=== PATIENT | female | born 1975 | race Caucasian/White ===

== ENCOUNTER 2016-05-03 22:00 | Emergency (ER) | payer BC ==
--- NOTE | 2016-05-03 22:31 | ED ---
General Adult HPI <Parish Faria - Last Filed: 05/03/16 22:43> - General Source: patient, RN notes reviewed Mode of arrival: ambulatory Limitations: no limitations <Jackie Melendez - Last Filed: 05/04/16 00:38> - General Chief complaint: Abdominal Pain Stated complaint: 9 wks /Bleeding Time Seen by Provider: 05/03/16 22:18 - History of Present Illness Initial comments: This is a 40-year-old female who presents with vaginal bleeding and is currently 9 weeks . Patient is via IVF and is followed at [facility]. Patient states the blood was initially a brownish red but is now a brighter red. Patient has had multiple ultrasounds and beta hCGs checked. Patient states the bleeding started around 3 PM today and has been quite heavy. Patient denies any abdominal pain or cramping. Patient denies any recent fever , chills, shortness breath, chest pain, nausea/vomiting/diarrhea, back pain, numbness, tingling, hematuria, headache, or visual changes, or any other complaints. (Jackie Melendez) - Related Data Previous Rx's Medication Instructions Recorded Ciprofloxacin HCl [Cipro] 500 mg PO Q12HR #10 tablet 08/22/13 Allergies Allergy/AdvReac Type Severity Reaction Status Date / Time No Known Allergies Allergy Verified 05/03/16 22:06 Review of Systems ROS Other: All systems not noted in ROS Statement are negative. <Parish Faria - Last Filed: 05/03/16 22:43> ROS Other: All systems not noted in ROS Statement are negative. <Jackie Melendez - Last Filed: 05/04/16 00:38> ROS Statement: Those systems with pertinent positive or pertinent negative responses have been documented in the HPI. Past Medical History Past Medical History: No Reported History History of Any Multi-Drug Resistant Organisms: None Reported Past Surgical History: Breast Surgery, Orthopedic Surgery Additional Past Surgical History / Comment(s): COLONOSCOPY, LUMPECTOMY LEFT BREAST Past Psychological History: ADD/ADHD Smoking Status: Never smoker Past Alcohol Use History: Occasional Past Drug Use History: None Reported <Jackie Melendez - Last Filed: 05/04/16 00:38> General Exam <Parish Faria - Last Filed: 05/03/16 22:43> Limitations: no limitations External exam: Present: normal external exam. Absent: erythema, swelling, lesions, lacerations Speculum exam: Present: normal speculum exam (Cervical os is closed. No products of conception visualized.), vaginal bleeding. Absent: erythema, laceration By manual exam: Present: normal by manual exam. Absent: cervical motion tenderness, adnexal tenderness <Jackie Melendez - Last Filed: 05/04/16 00:38> - General Exam Comments Initial Comments: General: The patient is awake and alert, in no distress, and does not appear acutely ill. Eye: Pupils are equal, round and reactive to light, extra-ocular movements are intact. No nystagmus. There is normal conjunctiva bilaterally. No signs of icterus. Ears: TMs pink and pearly with intact cone of light bilaterally. Normal external ear canals Nose: Nasal turbinates pink and moist Mouth and throat: There are moist mucous membranes and no oral lesions. Neck: The neck is supple, there is no tenderness or JVD. Cardiovascular: There is a regular rate and rhythm. No murmur, rub or gallop is appreciated. Respiratory: Lungs are clear to auscultation, respirations are non-labored, breath sounds are equal. No wheezes, stridor, rales, or rhonchi. Gastrointestinal: Soft, non-distended, non-tender abdomen without masses or organomegaly noted. There is no rebound or guarding present. No CVA tenderness. Bowel sounds are unremarkable. Musculoskeletal: Normal ROM, no tenderness. Strength 5/5. Sensation intact. Radial pulses equal bilaterally 2+. Neurological: A&O x 3. CN II-XII intact, There are no obvious motor or sensory deficits. Coordination appears grossly intact. Speech is normal. Skin: Skin is warm and dry and no rashes or lesions are noted. Psychiatric: Cooperative, appropriate mood & affect, normal judgment. (Jackie Melendez) Medical Decision Making - Lab Data Result diagrams: 05/03/16 22:10 <Parish Faria - Last Filed: 05/03/16 22:43> - Lab Data Result diagrams: 05/03/16 22:10 <Jackie Melendez - Last Filed: 05/04/16 00:38> - Medical Decision Making I spoke with the patient and she states that her is due to IVF, she is 9 weeks along. She's had ultrasounds which have shown IUP his without any problems. Today she had bleeding that initially looked dark brownish in color and then fresher. Minimal to no cramping. Patient does not know her blood type severity tested. Patient lives CBC ultrasound and Rh determination. Vaginal examination to be done after the ultrasound. Patient will follow-up with Dr. stanley. Dr. Faria (Bienvenido,Parish) This is a 40yo female who presents with vaginal bleeding and she is 9 weeks via IVF. On physical exam the patient has a nontender abdomen with no guarding and no rigidity. There is no adnexal tenderness or cervical motion tenderness with pelvic exam. On speculum exam cervical os is closed. There is blood in the vaginal vault but there is no current active or heavy bleeding. No products of conception noted. Patient declined GC chlamydia, Trichomonas screening at this time. Basic labs were drawn and reviewed. Transvaginal ultrasound was done and reviewed showing: Evidence of single live intrauterine 9 weeks and 1 day gestational age with heart rate of 176 bpm. MARY by current ultrasound is 12/05/2016. #2 small subchorionic bleed is noted surrounding the intrauterine congestions back measuring 3.2 x 1.3 x 2.4 cm. Report read by Dr. Ovalle. Discussed results with patient and family. I spoke with Dr. Pope regarding Rh- blood type. Patient received RhoGAM in the EC today. I discussed return parameters and pelvic rest. I discussed that patient should follow-up with Dr. Pope as soon as possible. Discussed that patient should follow up with PCP in one to 2 days or return to the EC for any worsening symptoms or for any further concerns. Patient was receptive to this plan and patient will be discharged home. I discussed this case with attending physicians Dr. Faria and Dr. Martinez who agrees with the plan as stated above. (Jackie Melendez) - Lab Data Lab Results 05/03/16 05/03/16 05/03/16 Range/Units 22:10 22:10 22:10 WBC 7.6 (3.8-10.6) k/uL RBC 4.46 (3.80-5.40) m/uL Hgb 14.1 (11.4-16.0) gm/dL Hct 41.5 (34.0-46.0) % MCV 93.1 (80.0-100.0) fL MCH 31.7 (25.0-35.0) pg MCHC 34.1 (31.0-37.0) g/dL RDW 12.5 (11.5-15.5) % Plt Count 253 (150-450) k/uL Neutrophils % 62 % Lymphocytes % 26 % Monocytes % 7 % Eosinophils % 2 % Basophils % 1 % Neutrophils # 4.7 (1.3-7.7) k/uL Lymphocytes # 2.0 (1.0-4.8) k/uL Monocytes # 0.5 (0-1.0) k/uL Eosinophils # 0.1 (0-0.7) k/uL Basophils # 0.0 (0-0.2) k/uL HCG, Quant >147140.0 mIU/mL Blood Type A Negative Blood Type Recheck No Antibody Screen NEGATIVE Disposition <Parish Faria - Last Filed: 05/03/16 22:43> Time of Disposition: 00:11 <Jackie Melendez - Last Filed: 05/04/16 00:38> Clinical Impression: Vaginal bleeding before 22 weeks gestation, Intrauterine , Subchorionic bleed Disposition: HOME SELF-CARE Condition: Good Instructions: Rho (By injection) Additional Instructions: Please follow-up with Dr. Pope in the next 1-2 days. Pelvic rest is advised. Please return to emergency room if the symptoms increase or worsen or for any other concerns. Referrals: Rochelle Pope MD [Primary Care Provider] - 1-2 days
[2016-05-03 22:37] LABS: Basophils % (A) 1 %; CH 32.6; CHCM 35.1; Eosinophils # (A) 0.1 k/uL (0-0.7); Eosinophils % (A) 2 %; HCT 41.5 % (34.0-46.0); HDW 2.45; HGB 14.1 gm/dL (11.4-16.0); Luc # (Auto) 0.19; Luc % (Auto) 3; Lymphocytes % (A) 26 %; MCH 31.7 pg (25.0-35.0); MCHC 34.1 g/dL (31.0-37.0); MCV 93.1 fL (80.0-100.0); Mean Platelet Volume 6.7; Monocytes # (A) 0.5 k/uL (0-1.0); Monocytes % (A) 7 %; Neutrophils # (A) 4.7 k/uL (1.3-7.7); Neutrophils % (A) 62 %; RBC 4.46 m/uL (3.80-5.40); RDW 12.5 % (11.5-15.5); WBC 7.6 k/uL (3.8-10.6); WBC (Perox) 7.58
--- NOTE | 2016-05-03 23:29 | US ---
EXAMINATION TYPE: US OB <= 14 wk fetus DATE OF EXAM: 05/03/2016 11:01 PM COMPARISON: 06/19/2015 CLINICAL HISTORY: pain. Bleeding x 1 day, 1 EXAM PERFORMED: Transabdominal (TA) EXAM MEASUREMENTS: GESTATIONAL AGE / DATING Physician Established: Not established yet Dates by LMP: (9 weeks/1 days) EDC: 12/05/2016 Dates by First Scan: No previous Dates by Current Scan for: (9 weeks/1 days) EDC: 12/05/2016 MATERNAL ANATOMY Uterus: 10.3 x 7.1 x 7.8cm Right Ovary: 2.7 x 2.0 x 1.8cm Left Ovary: 2.8 x 1.6 x 1.8cm Post CDS / Adnexa: wnl Presence of free fluid: no Presence of corpus luteal cyst: not seen at this time Presence of subchorionic bleed: 3.2 x 1.3 x 2.4cm complex area adjacent to gestational sac GESTATION / SURVEY CRL: 2.4cm (9 weeks/1 days) Yolk Sac (normal less than 6mm): 3.6mm Heart Rate: 176 bpm Rhythm: Normal IUP: Viable IUP Date of LMP: 02/29/16 Beta HcG (if available): Not available at time of exam TECHNOLOGIST IMPRESSION: Viable single IUP measuring 9 weeks 1 day with a heart rate of 176bpm and a n estimated delivery date of 12/05/2016, 3.2 x 1.3 x 2.4cm complex area adjacent to gestational sac - possible subchorionic bleed IMPRESSION: 1. Evidence of single live intrauterine of 9 weeks and 1 day gestational age with hea rt rate of 176 bpm. MARY by current ultrasound is 12/05/2016. 2. Small subchorionic bleed is noted surrounding the intrauterine congestion sac measuring 3.2 x 1.3 x 2.4 cm.
[2016-05-03] MEDS ORDERED: Rhogam IMMUNE GLOBULIN 1,500 UNIT/1 ML IM ONE (23:43)
[2016-05-04 00:33] VITALS: RESP 16
[2016-05-04 01:05] VITALS: BP 110/65; PULSE 53; TEMP 99
== END 2016-05-04 01:03 | disposition home or self-care (01) ==
LOC: EC 22:00
DX: O20.9 Hemorrhage in early pregnancy, unspecified (principal); Z3A.09 9 weeks gestation of pregnancy; O26.893 Other specified pregnancy related conditions, third trimester; Z67.11 Type A blood, Rh negative
CPT/HCPCS: 96372; 36415; 86900; 86901; 85025; 86850; 84702; 76801; 99284; J2791

== ENCOUNTER 2016-09-18 15:01 | Outpatient (CLI) | payer BC ==
[2016-09-18 16:13] VITALS: BP 111/61; PULSE 51; RESP 16; TEMP 98
== END 2016-09-18 15:50 | disposition home or self-care (01) ==
LOC: FBPOP 15:01
PROVIDERS: ATTEND Obstetrics & Gynecology
DX: O26.93 Pregnancy related conditions, unspecified, third trimester (principal); Z3A.29 29 weeks gestation of pregnancy
CPT/HCPCS: 59025; 99213

== ENCOUNTER 2016-11-30 00:25 | Inpatient (IN) | payer BC ==
[2016-11-30] MEDS ORDERED: OXYTOCIN 10 UNIT/ML 1 ML VIAL IM PRN (00:58)
[2016-11-30] MEDS ORDERED: LIDOCAINE 1% (PF) 10 MG/ML (30 ML SDV) SQ PRN (00:58)
[2016-11-30] MEDS ORDERED: METHYLERGONOVINE 0.2 MG/ML 1 ML AMP IM PRN (00:58)
[2016-11-30] MEDS ORDERED: CARBOPROST TROMETHAMINE 250 MCG/ML 1 ML AMP IM PRN (00:58)
[2016-11-30] MEDS ORDERED: TERBUTALINE 1 MG/ML VIAL SQ PRN (00:58)
[2016-11-30 01:35] VITALS: BMI 23.7
[2016-11-30] MEDS: OXYTOCIN 20 UNITS/1000 ML NS 1,000 ML IV SCH (06:50)
[2016-11-30] MEDS: LACTATED RINGERS 1,000 ML IV SCH ×3 (06:53→19:22)
[2016-11-30] MEDS ORDERED: BUTORPHANOL 1 MG/ML 1 ML VIAL IV PRN (07:17)
--- NOTE | 2016-11-30 08:29 | P.HPOB ---
History of Present Illness H&P Date: 11/30/16 Chief Complaint: IUP at 39-4/7 weeks, spontaneous rupture of membranes This is a very pleasant 41-year-old 1 para 0 at 39-4/7 weeks. Estimated due date of 12/03/2016. She presented to labor and delivery early this morning with complaints of rupture of membranes at 2330. Was noted to be clear in nature. She noted some mild contractions at the time of admission. She also noted good movement and denied vaginal bleeding. blood work showed a blood type of A-, she was rubella immune, hepatitis B surface antigen negative, group beta strep negative, HIV negative. Her has been complicated by a circumvallate placenta and she has been receiving testing in the office with Dr. Henderson Past Medical History Past Medical History: No Reported History History of Any Multi-Drug Resistant Organisms: None Reported Past Surgical History: Breast Surgery, Orthopedic Surgery Additional Past Surgical History / Comment(s): COLONOSCOPY, LUMPECTOMY LEFT BREAST Past Anesthesia/Blood Transfusion Reactions: No Reported Reaction Past Psychological History: ADD/ADHD Smoking Status: Never smoker Past Alcohol Use History: Occasional Past Drug Use History: None Reported - Past Family History Father Family Medical History: Hypertension Medications and Allergies Home Medications Medication Instructions Recorded Confirmed Type Levothyroxine Sodium [Synthroid] 50 mcg PO DAILY 11/30/16 11/30/16 History Pnv,Calcium 72/Iron/Folic Acid 1 tab PO DAILY 11/30/16 11/30/16 History [ Plus Tablet] Allergies Allergy/AdvReac Type Severity Reaction Status Date / Time No Known Allergies Allergy Verified 11/30/16 00:40 Exam Osteopathic Statement: *. No significant issues noted on an osteopathic structural exam other than those noted in the History and Physical/Consult. - Vital Signs Vital signs: Vital Signs Temp Pulse Resp BP Pulse Ox 11/30/16 00:39 97.3 F L 55 L 18 115/68 100 Intake and Output 11/29/16 11/30/16 11/30/16 22:59 06:59 14:59 Intake Total 1000 Balance 1000 Intake: IV 1000 Lactated Ringers 1,000 ml 1000 @ 125 mls/hr IV .Q8H COURTNEY Rx#:[id number] Other: # Voids 1 Weight 61.689 kg - OBG Physical Exam Cervix: /2 per RN on admission Assessment and Plan (1) Term Narrative/Plan: Rina is admitted to labor and delivery for expectant management. Will anticipate spontaneous vaginal delivery. Pitocin augmentation if necessary in the morning. Status: Acute (2) SROM (spontaneous rupture of membranes) Status: Acute (3) AMA (advanced maternal age) primigravida 35+ Status: Acute
[2016-11-30] MEDS ORDERED: BUPIVACAINE (PF) 0.25% 30 ML VIAL ONE (08:34)
[2016-11-30] MEDS ORDERED: SODIUM CHLORIDE 0.9% 100 ML BAG ONE (08:34)
[2016-11-30] MEDS ORDERED: fentaNYL (PF) 50 MCG/ML 5 ML AMP ONE (08:34)
[2016-11-30] MEDS ORDERED: Acetaminophen-Codeine 300-30mg TAB PO PRN ×2 (13:45)
[2016-11-30] MEDS ORDERED: HYDROCORTISONE 2.5% RECTAL CREAM 30 GM TUBE RECTAL PRN (13:45)
[2016-11-30] MEDS ORDERED: diphenhydrAMINE 50 MG/ML 1 ML VIAL IVP PRN ×2 (13:45)
[2016-11-30] MEDS ORDERED: diphenhydrAMINE 25 MG CAP PO PRN (13:45)
[2016-11-30] MEDS ORDERED: OXYTOCIN 20 UNITS/1000 ML NS 1,000 ML IV SCH (13:45)
[2016-11-30] MEDS ORDERED: SIMETHICONE 80 MG CHEWABLE PO PRN (13:45)
[2016-11-30] MEDS ORDERED: diphenhydrAMINE 50 MG CAP PO PRN (13:45)
[2016-11-30] MEDS ORDERED: ZOLPIDEM 5 MG TAB PO PRN (13:45)
[2016-11-30] MEDS ORDERED: ACETAMINOPHEN TAB 325 MG TAB PO PRN (13:45)
[2016-11-30] MEDS ORDERED: WITCH HAZEL 1 EACH MED..PAD TOPICAL PRN (13:45)
[2016-11-30] MEDS ORDERED: LANOLIN CREAM 5 GM TUBE TOPICAL PRN (13:45)
[2016-11-30] MEDS ORDERED: BENZOCAINE/MENTHOL SPRAY 1 GM/SPRAY AEROSOL TOPICAL PRN (13:45)
--- NOTE | 2016-11-30 13:45 | P.PROBDLV ---
Vaginal Delivery Note - . Vaginal Delivery Note: Baby is a very pleasant 41-year-old 1 para 0 at 39-4/7 weeks that presented to OB with complaints of rupture of membranes at 2330. He noted the fluid to be clear in nature with cramping, mild contractions. Patient was admitted to labor and delivery for expectant management given she was GBS negative. Pitocin was started early this morning to induce labor, by just after 8 AM she was 3 cm at this time uncomfortable and requesting an epidural. Her O was placed without difficulty and patient promptly took a nap after a proximally 2 hours patient had a vaginal exam revealing she was completely dilated at +2 station. She began pushing for approximately 1 hour with good progress. She had a normal spontaneous vaginal delivery over an intact perineum no nuchal cord noted. Male infant delivered at 1251 meconium-stained fluid was noted behind the body of the baby. The baby was noted to be pale the cord was doubly clamped and cut and handed off to pediatric rn. Apgars were 4, 6 at 1 and 5 minutes respectively. The baby's heart rate after delivery was noted to be in the 160s to 180s the baby was bagged in the [place]so[place] please see infant form for official time. Sponge was then delivered, she was noted to have a circumvallate placenta. The umbilical cord was loosely attached placenta and manual extraction was needed to clear the uterus of the placenta. Center was removed intact and the uterus was felt to be clear of all clots and placental debris. On vaginal assessment a periurethral laceration was noted which was repaired with 4-0 chromic. In addition a first-degree vaginal laceration was noted which was repaired in a running locked fashion with 3-0 Rapide. Rectal exam was done at the end of the repair work no rectal defects were noted. Estimated blood loss was approximately 300 mL, her bladder was emptied for approximately 100 mL of clear yellow urine prior to pushing. Mom tolerated delivery well, to special care nursery for further evaluation, All counts were correct 2
[2016-11-30 14:27] LABS: Basophils % (A) 0 %; CHCM 35.2; Eosinophils # (A) 0.1 k/uL (0-0.7); Eosinophils % (A) 0 %; HCT 38.5 % (34.0-46.0); HDW 3.23; HGB 13.6 gm/dL (11.4-16.0); Luc # (Auto) 0.17; Luc % (Auto) 1; Lymphocytes # (A) 0.6 k/uL (1.0-4.8); Lymphocytes % (A) 3 %; MCH 34.4 pg (25.0-35.0); MCHC 35.4 g/dL (31.0-37.0); MCV 97.4 fL (80.0-100.0); Mean Platelet Volume 7.9; Monocytes # (A) 0.9 k/uL (0-1.0); Monocytes % (A) 5 %; Neutrophils # (A) 16.5 k/uL (1.3-7.7); Neutrophils % (A) 91 %; RBC 3.95 m/uL (3.80-5.40); RDW 13.9 % (11.5-15.5); WBC 18.2 k/uL (3.8-10.6); WBC (Perox) 19.09
[2016-11-30] MEDS: ceFAZolin 2 GM in SODIUM CHLORIDE 0.9% 100 ML IVPB SCH ×2 (14:30→22:23)
[2016-11-30] MEDS: SENNOSIDES-DOCUSATE SODIUM 1 EACH TAB PO SCH (20:53)
[2016-11-30] MEDS: IBUPROFEN 600 MG TAB PO PRN (23:00)
[2016-12-01] MEDS: ceFAZolin 2 GM in SODIUM CHLORIDE 0.9% 100 ML IVPB SCH (06:14)
[2016-12-01] MEDS: IBUPROFEN 600 MG TAB PO PRN ×3 (06:14→20:08)
[2016-12-01] MEDS: LEVOTHYROXINE 50 MCG TAB PO SCH (06:14)
[2016-12-01 06:46] LABS: Basophils % (A) 0 %; CH 35.2; CHCM 35.9; Eosinophils # (A) 0.1 k/uL (0-0.7); Eosinophils % (A) 1 %; HCT 35.1 % (34.0-46.0); HDW 3.18; HGB 12.2 gm/dL (11.4-16.0); Luc # (Auto) 0.19; Luc % (Auto) 2; Lymphocytes # (A) 1.2 k/uL (1.0-4.8); Lymphocytes % (A) 10 %; MCH 34.4 pg (25.0-35.0); MCHC 34.9 g/dL (31.0-37.0); MCV 98.8 fL (80.0-100.0); Mean Platelet Volume 8.6; Monocytes # (A) 0.7 k/uL (0-1.0); Monocytes % (A) 6 %; Neutrophils # (A) 9.9 k/uL (1.3-7.7); Neutrophils % (A) 82 %; RBC 3.55 m/uL (3.80-5.40); RDW 14.8 % (11.5-15.5); WBC 12.1 k/uL (3.8-10.6); WBC (Perox) 13.03
--- NOTE | 2016-12-01 09:04 | P.PNOBGVD ---
Subjective - Subjective Principal diagnosis: Intrauterine at 39-4/7 weeks, spontaneous rupture of membranes Interval history: He is status post normal spontaneous vaginal delivery of a viable male at 1251. She is doing well . She states her pain is controlled with oral Motrin. She has ambulated and voided without difficulty. She states her lochia is moderate at this time. She is breast-feeding and pumping at this time in addition. Patient reports: Reports appetite normal, Reports voiding normally, Reports pain well controlled, Reports ambulating normally [place]: doing well Objective - Latest Vital Signs Latest vital signs: Vital Signs Temp Pulse Resp BP Pulse Ox 11/30/16 23:04 99 F 65 16 111/66 100 11/30/16 20:00 99 F 57 L 18 119/69 11/30/16 16:00 97.5 F L 59 L 20 115/61 11/30/16 15:06 97.5 F L 52 L 20 106/55 11/30/16 14:36 59 L 20 108/57 11/30/16 14:06 60 20 116/60 11/30/16 13:53 66 20 119/60 11/30/16 13:36 66 20 108/58 11/30/16 13:22 67 20 112/56 11/30/16 13:06 95 20 145/73 Intake and Output 11/30/16 12/01/16 12/01/16 22:59 06:59 14:59 Other: # Voids 1 1 - Exam Lungs: bilateral: normal Extremities: Present: normal Abdomen: Present: normal appearance (Uterus firm below the umbilicus) Uterus: Present: normal, firm - Labs Labs: Abnormal Lab Results - Last 24 Hours (Table) 11/30/16 12/01/16 Range/Units 14:10 06:35 WBC 18.2 H 12.1 H (3.8-10.6) k/uL RBC 3.55 L (3.80-5.40) m/uL Neutrophils # 16.5 H 9.9 H (1.3-7.7) k/uL Lymphocytes # 0.6 L (1.0-4.8) k/uL Assessment and Plan (1) Term Narrative/Plan: Routine care will continue for Reena. Her male infant is being monitored in the nursery and should return to the room with his parents today. We will plan for discharge tomorrow. Current Visit: Yes Status: Acute Code(s): Z34.80 - ENCOUNTER FOR SUPRVSN OF NORMAL , UNSP TRIMESTER SNOMED Code(s): 36988904 (2) SROM (spontaneous rupture of membranes) Current Visit: Yes Status: Acute Code(s): HMB6250 - SNOMED Code(s): 522487704 (3) AMA (advanced maternal age) primigravida 35+ Current Visit: Yes Status: Acute Code(s): O09.519 - SUPERVISION OF ELDERLY PRIMIGRAVIDA, UNSPECIFIED TRIMESTER SNOMED Code(s): 81851711
[2016-12-01] MEDS: SENNOSIDES-DOCUSATE SODIUM 1 EACH TAB PO SCH ×2 (09:19→20:00)
[2016-12-01] MEDS ORDERED: Rhogam IMMUNE GLOBULIN 1,500 UNIT/1 ML IM ONE (18:37)
[2016-12-01] MEDS: LACTATED RINGERS 1,000 ML IV SCH ×2 (21:41→21:42)
[2016-12-01] MEDS: OXYTOCIN 20 UNITS/1000 ML NS 1,000 ML IV SCH (21:42)
[2016-12-02] MEDS: IBUPROFEN 600 MG TAB PO PRN ×3 (01:56→16:22)
--- NOTE | 2016-12-02 06:54 | P.PNOBGVD ---
Subjective - Subjective Principal diagnosis: day #2, spontaneous vaginal delivery Interval history: Menses course has been essentially benign. She is doing well today and wishes to be discharged home. She is ambulating and voiding without difficulty. She is tolerating a regular diet without nausea or vomiting. She is stating her pain is controlled with Motrin. She is pumping and struggling with breast-feeding a little bit at this time and, is formula feeding at times. Patient reports: Reports appetite normal, Reports voiding normally, Reports pain well controlled, Reports ambulating normally : doing well Objective - Latest Vital Signs Latest vital signs: Vital Signs Temp Pulse Resp BP 12/02/16 00:00 98.2 F 56 L 16 116/70 12/01/16 16:00 98.6 F 55 L 18 117/67 12/01/16 12:00 98.6 F 56 L 18 112/65 12/01/16 08:00 98.7 F 53 L 18 108/68 Intake and Output 12/01/16 12/01/16 12/02/16 14:59 22:59 06:59 Intake Total 250 Balance 250 Intake: IV 250 Invasive Line 1 250 - Exam Extremities: Present: normal Abdomen: Present: normal appearance Uterus: Present: firm (2 finger breaths below the umbilicus) Assessment and Plan (1) Term Narrative/Plan: We'll plan for discharge today. Discharge instructions are reviewed with the patient in detail. Patient to follow up at [facility] in 4-6 weeks for routine care. Prescriptions for Motrin will be given to the patient before discharge Current Visit: Yes Status: Acute Code(s): Z34.80 - ENCOUNTER FOR SUPRVSN OF NORMAL , UNSP TRIMESTER SNOMED Code(s): 07437482 (2) SROM (spontaneous rupture of membranes) Current Visit: Yes Status: Acute Code(s): KGL2147 - SNOMED Code(s): 503195288 (3) AMA (advanced maternal age) primigravida 35+ Current Visit: Yes Status: Acute Code(s): O09.519 - SUPERVISION OF ELDERLY PRIMIGRAVIDA, UNSPECIFIED TRIMESTER SNOMED Code(s): 42032200
--- NOTE | 2016-12-02 06:58 | P.DS ---
Providers Date of admission: 11/30/16 00:35 Expected date of discharge: 12/02/16 Attending physician: Nick Henderson Primary care physician: Nick Henderson - Discharge Diagnosis(es) (1) Term Patient presented to labor and delivery with complaints of rupture of membranes , she progressed through labor and had a normal spontaneous vaginal delivery of a viable male infant at 12:51. She has done well with her course. She is ambulatory and voiding without difficulty. She is tolerating a regular diet without nausea or vomiting. She is taking Motrin for pain control. She is attempting breast-feeding and formula feeding in addition. Current Visit: Yes Status: Acute (2) SROM (spontaneous rupture of membranes) Current Visit: Yes Status: Acute (3) AMA (advanced maternal age) primigravida 35+ Current Visit: Yes Status: Acute Plan - Discharge Summary New Discharge Prescriptions: No Action Levothyroxine Sodium [Synthroid] 50 mcg PO DAILY Pnv,Calcium 72/Iron/Folic Acid [ Plus Tablet] 1 tab PO DAILY Discharge Medication List Levothyroxine Sodium [Synthroid] 50 mcg PO DAILY 11/30/16 [History] Pnv,Calcium 72/Iron/Folic Acid [ Plus Tablet] 1 tab PO DAILY 11/30/16 [ History] Follow up Appointment(s)/Referral(s): Nick Henderson MD [Primary Care Provider] - 6 Weeks Patient Instructions/Handouts: Vaginal Delivery (DC) Discharge Disposition: HOME SELF-CARE
[2016-12-02] MEDS: LEVOTHYROXINE 50 MCG TAB PO SCH (08:47)
[2016-12-02] MEDS: SENNOSIDES-DOCUSATE SODIUM 1 EACH TAB PO SCH (08:48)
[2016-12-02 16:46] VITALS: BP 120/68; PULSE 70; RESP 16; TEMP 98.6
== END 2016-12-02 21:15 | disposition home or self-care (01) | DRG 775 ==
LOC: FBPOP 00:25 → 4FBP 00:35
PROVIDERS: ADMIT Obstetrics & Gynecology Obstetrics; ATTEND Obstetrics & Gynecology
PROC: 0HQ9XZZ Repair Perineum Skin, External Approach (ICD-10-PCS; principal; 2016-11-30)
PROC: 00HU33Z Insertion of Infusion Device into Spinal Canal, Percutaneous Approach (ICD-10-PCS; principal; 2016-11-30)
PROC: 10E0XZZ Delivery of Products of Conception, External Approach (ICD-10-PCS; principal; 2016-11-30)
PROC: 0UQMXZZ Repair Vulva, External Approach (ICD-10-PCS; principal; 2016-11-30)
PROC: 3E0R3CZ (ICD-10-PCS; principal; 2016-11-30)
DX: O43.113 Circumvallate placenta, third trimester (principal); O77.0 Labor and delivery complicated by meconium in amniotic fluid; O09.513 Supervision of elderly primigravida, third trimester; Z37.0 Single live birth; Z3A.39 39 weeks gestation of pregnancy; O71.82 Other specified trauma to perineum and vulva; O70.0 First degree perineal laceration during delivery
CPT/HCPCS: 85025; 85461; 88307

== ENCOUNTER → 2020-09-22 | Outpatient (CLI) | payer BC ==
--- NOTE | 2020-09-26 10:36 | MM ---
Reason for exam: screening (asymptomatic). Last mammogram was performed 6 years and 9 months ago. History: Patient had first child at age 41. Excisional biopsy of the left breast, August 21, 2007. Took hormonal contraceptives for 10 years. Physical Findings: A clinical breast exam by your physician is recommended on an annual basis and results should be correlated with mammographic findings. MG 3D Screening Mammo W/Cad Bilateral CC and MLO view(s) were taken. Prior study comparison: December 29, 2013, bilateral MG diagnostic mammo w CAD ADAM. September 09, 2008, bilateral diagnostic digital mammog. The breast tissue is extremely dense which could obscure a lesion on mammography. Some benign round and punctate calcifications left breast. Either rounded asymmetric density or nodular breast tissue superiorly right breast. ASSESSMENT: Incomplete: need additional imaging evaluation, BI-RAD 0 RECOMMENDATION: Ultrasound of both breasts. (right superior, left entire for tenderness) [facility] will attempt to contact patient to return for ultrasound.
== END | disposition home or self-care (01) ==
LOC: RADMAMWWP 08:56
PROVIDERS: ATTEND Obstetrics & Gynecology
DX: Z12.31 Encounter for screening mammogram for malignant neoplasm of breast (principal)
CPT/HCPCS: 77063; 77067

== ENCOUNTER → 2020-10-03 | Outpatient (CLI) | payer BC ==
--- NOTE | 2020-10-04 10:15 | USB ---
Reason for exam: additional evaluation requested from abnormal screening. History: Patient had first child at age 41. Excisional biopsy of the left breast, August 21, 2007. Took hormonal contraceptives for 10 years. Physical Findings: Nurse Summary: Patient complains of left lateral breast pain x 2 months (nurse mj). US Breast Workup Limited ADAM Right limited breast ultrasound including focal area of concern, retroareolar and axilla demonstrates no cystic or solid lesion seen. Left complete breast ultrasound includes all four quadrants, the retroareolar region and axilla. Finding demonstrates no cystic or solid lesion seen. No sonographic findings. Right benign asymmetry/overlap dense breast tissues on mammogram. Left tenderness, clinical follow up. These results were verbally communicated with the patient and result sheet given to the patient on 10/03/20. ASSESSMENT: Benign, BI-RAD 2 RECOMMENDATION: Return to routine screening mammogram schedule for both breasts. Manage on a clinical basis with regard to left breast tenderness.
== END | disposition home or self-care (01) ==
LOC: RADUSWWP 14:46
PROVIDERS: ATTEND Obstetrics & Gynecology
DX: R92.8 Other abnormal and inconclusive findings on diagnostic imaging of breast (principal)

== ENCOUNTER → 2022-07-05 | Outpatient (CLI) | payer BC ==
[2022-07-05 20:12] LABS: HCT 47.3 % (37.2-46.3); MCH 30.6 pg (27.0-32.0); MCHC 31.7 g/dL (32.0-37.0); MCV 96.5 fL (80.0-97.0); Mean Platelet Volume 10.9 fL (9.5-12.2); NRBC Per 100 WBC 0 /100 WBCS (0.0-0.0); Platelet Count 253 X 10*3/uL (140-440); RDW 12.3 % (11.5-14.5); WBC 6.97 X 10*3/uL (4.50-10.00)
[2022-07-05 20:39] LABS: Rheumatoid Factor, Qnt <10 IU/mL (0-15)
[2022-07-05 20:40] LABS: C Reactive Protein <0.30 mg/dL (0.00-0.80)
[2022-07-05 21:06] LABS: Erythrocyte Sedimentation Rate 5 mm/Hr (0-20)
[2022-07-06 13:06] LABS: HLA B27 NEGATIVE
[2022-07-07 11:12] LABS: Streptolysin O Ab(ASO) 41 IU/L (0-200)
== END | disposition home or self-care (01) ==
LOC: LABWHC1 10:37
PROVIDERS: ATTEND Orthopaedic Surgery Sports Medicine
DX: S56.511D Strain of other extensor muscle, fascia and tendon at forearm level, right arm, subsequent encounter (principal); M25.521 Pain in right elbow; X58.XXXD Exposure to other specified factors, subsequent encounter
CPT/HCPCS: 36415; 84443; 85027; 85652; 86038; 86060; 86140; 86431; 86618; 86812

== ENCOUNTER → 2023-02-12 | Outpatient (CLI) | payer BC ==
--- NOTE | 2023-02-13 09:17 | MM ---
Reason for Exam: Screening (asymptomatic). Last mammogram was performed 2 year(s) and 5 month(s) ago. Patient History: Menarche at age 13. First Full-Term at age 41. Late child-bearing (after 30). Patient used Hormonal Contraceptives for 10 years. 2008, Excisional Biopsy on the Left side. 08/21/2007, Excisional Biopsy on the Left side. Last menstrual period: 02/12/2023 Risk Values: Diana 5 year model risk: 1.7%. NCI Lifetime model risk: 15.3%. Prior Study Comparison: 09/09/2008 Bilateral Diagnostic Mammogram, [facility]. 12/29/2013 Bilateral Diagnostic Mammogram, [facility]. 09/22/2020 Bilateral Screening Mammogram, [facility]. Tissue Density: The breast tissue is extremely dense which could obscure a lesion on mammography. Findings: Analyzed By CAD. There is no suspicious group of microcalcifications or new suspicious mass in either breast. Overall Assessment: Benign, BI-RAD 2 Management: Screening Mammogram of both breasts in 1 year. . Patient should continue monthly self-breast exams. A clinical breast exam by your physician is recommended on an annual basis. This exam should not preclude additional follow-up of suspicious palpable abnormalities. Note on Diana scores and lifetime risk: 1. A Diana score greater than 3% is considered moderate risk. If this is the case, consider specialist referral to assess eligibility for a risk reducing agent. 2. If overall lifetime risk for the development of breast cancer is 20% or higher, the patient may qualify for future screening with alternating mammogram and breast MRI. Electronically signed and approved by: Chapin Valdivia M.D. Radiologis
== END | disposition home or self-care (01) ==
LOC: RADMAMWWP 07:52
PROVIDERS: ATTEND Obstetrics & Gynecology
DX: Z12.31 Encounter for screening mammogram for malignant neoplasm of breast (principal)
CPT/HCPCS: 77067

== ENCOUNTER → 2023-05-30 | Outpatient (CLI) | payer BC ==
[2023-05-30 16:04] LABS: ALT 31 U/L (8-44); AST 30 U/L (13-35); Blood Urea Nitrogen 18.5 mg/dL (9.0-27.0); C Reactive Protein <0.30 mg/dL (0.00-0.80)
[2023-05-30 16:08] LABS: Basophils # (A) 0.04 X 10*3/uL (0.00-0.10); Basophils % (A) 0.7 %; Eosinophils # (A) 0.07 X 10*3/uL (0.04-0.35); Eosinophils % (A) 1.2 %; HCT 40.1 % (37.2-46.3); HGB 13.4 g/dL (12.0-15.0); Lymphocytes # (A) 1.14 X 10*3/uL (0.90-5.00); Lymphocytes % (A) 19.5 %; MCH 30.3 pg (27.0-32.0); MCHC 33.4 g/dL (32.0-37.0); MCV 90.7 FL (80.0-97.0); Mean Platelet Volume 10.6 FL (9.5-12.2); Monocytes % (A) 8.5 %; NRBC Per 100 WBC 0 X 10*3/uL (0.00-0.01); Neutrophils # (A) 4.09 X 10*3/uL (1.80-7.70); Neutrophils % (A) 69.9 %; Platelet Count 247 X 10*3/uL (140-440); RBC 4.42 X 10*6/uL (4.10-5.20); RDW 12.2 % (11.5-14.5); WBC 5.85 X 10*3/uL (4.50-10.00)
== END | disposition home or self-care (01) ==
LOC: LABWHC1 09:27
PROVIDERS: ATTEND Internal Medicine Rheumatology
DX: Z00.00 Encounter for general adult medical examination without abnormal findings (principal); M25.50 Pain in unspecified joint; M45.6 Ankylosing spondylitis lumbar region; M06.4 Inflammatory polyarthropathy
CPT/HCPCS: 36415; 82565; 84450; 84460; 84520; 85025; 85652; 86140

== ENCOUNTER → 2023-05-30 | Outpatient (CLI) | payer BC ==
--- NOTE | 2023-05-30 10:07 | XR ---
EXAMINATION TYPE: XR chest 2V DATE OF EXAM: 05/30/2023 COMPARISON: None HISTORY: 47-year-old female with cough, M65.9 SYNOVITIS AND TENOSYNOVITIS, UNSPECIFIED TECHNIQUE: Frontal and lateral views FINDINGS: The cardiomediastinal silhouette, aorta, and pulmonary vasculature are within normal limits. Lungs an d pleural spaces are clear. IMPRESSION: No acute cardiopulmonary process.
== END | disposition home or self-care (01) ==
LOC: RADXRMAIN 09:05
PROVIDERS: ATTEND Internal Medicine Rheumatology
DX: M65.9 Synovitis and tenosynovitis, unspecified (principal); R05.9 Cough, unspecified; M25.521 Pain in right elbow
CPT/HCPCS: 71046

== ENCOUNTER → 2024-06-09 | Outpatient (CLI) | payer BC ==
--- NOTE | 2024-06-09 11:44 | MM ---
Reason for Exam: Clinical finding. Last mammogram was performed 1 year(s) and 4 month(s) ago. Indicated Problems: Lump or thickening of the left side for 2 Month(s). Patient History: Menarche at age 13. First Full-Term at age 41. Late child-bearing (after 31). Patient has history of breast feeding. Patient used Hormonal Contraceptives for 10 years. 2008, Excisional Biopsy on the Left side. 08/21/2007, Excisional Biopsy on the Left side. Last menstrual period: 06/09/2024 Risk Values: Diana 5 year model risk: 1.7%. NCI Lifetime model risk: 15.0%. Prior Study Comparison: 04/11/2003 Bilateral Diagnostic Mammogram, [facility]. 04/11/2003 Left Diagnostic Ultrasound, [facility]. 08/04/2007 Bilateral Diagnostic Mammogram, [facility]. 08/04/2007 Left Diagnostic Ultrasound, [facility]. 09/09/2008 Bilateral Diagnostic Mammogram, [facility]. 09/09/2008 Left Diagnostic Ultrasound, [facility]. 12/29/2013 Bilateral Diagnostic Mammogram, [facility]. 12/29/2013 Left Diagnostic Ultrasound, [facility]. 09/22/2020 Bilateral Screening Mammogram, [facility]. 10/03/2020 Bilateral Diagnostic Ultrasound, [facility]. 02/12/2023 Bilateral MG screening mammo w CAD, [facility]. Tissue Density: The breasts are extremely dense, which lowers the sensitivity of mammography. Findings: Analyzed By CAD. No evidence for mass or distortion. No mass seen at the site of clinical concern left breast. Ultrasound recommended. No suspicious calcifications. Overall Assessment: Incomplete: need additional imaging evaluation, BI-RAD 0 Management: Diagnostic Breast Ultrasound of the left breast. . Results were given to the patient verbally at the time of exam. Patient should continue monthly self-breast exams. A clinical breast exam by your physician is recommended on an annual basis. This exam should not preclude additional follow-up of suspicious palpable abnormalities. Note on Diana scores and lifetime risk: 1. A Diana score greater than 3% is considered moderate risk. If this is the case, consider specialist referral to assess eligibility for a risk reducing agent. 2. If overall lifetime risk for the development of breast cancer is 20% or higher, the patient may qualify for future screening with alternating mammogram and breast MRI. [facility], , 06/09/2024 11:41 AM. Electronically signed and approved by: Chapin Valdivia M.D. Radiologis
--- NOTE | 2024-06-09 12:11 | USB ---
Reason for Exam: Clinical finding. Patient History: Menarche at age 13. First Full-Term at age 41. Late child-bearing (after 31). Patient has history of breast feeding. Patient used Hormonal Contraceptives for 10 years. 2008, Excisional Biopsy on the Left side. 08/21/2007, Excisional Biopsy on the Left side. Risk Values: Diana 5 year model risk: 1.7%. NCI Lifetime model risk: 15.0%. Prior Study Comparison: 12/29/2013 Bilateral Diagnostic Mammogram, [facility]. 09/22/2020 Bilateral Screening Mammogram, [facility]. 02/12/2023 Bilateral MG screening mammo w CAD, [facility]. Findings: The area of palpable concern of the left breast, the axilla of the left breast and the retroareolar of the left breast were scanned. No solid or cystic masses are identified. Biopsy should not be delayed in the setting of a clinically suspicious abnormality. Overall Assessment: Negative, BI-RAD 1 Management: Screening Mammogram of both breasts in 1 year. A clinical breast exam by your physician is recommended on an annual basis and results should be correlated with mammographic findings. This exam should not preclude additional follow-up of suspicious palpable abnormalities. Results were given to the patient verbally at the time of exam. [facility], , 06/09/2024 12:06 PM. Electronically signed and approved by: Chapin Valdivia M.D. Radiologis
== END | disposition home or self-care (01) ==
LOC: RADMAMWWP 11:16
PROVIDERS: ATTEND Obstetrics & Gynecology
DX: N63.20 Unspecified lump in the left breast, unspecified quadrant (principal); R92.343 Mammographic extreme density, bilateral breasts; Z92.0 Personal history of contraception
CPT/HCPCS: 77062; 77066

== ENCOUNTER → 2024-09-24 | Outpatient (CLI) | payer BC ==
[2024-09-24 15:17] LABS: Basophils # (A) 0.04 X 10*3/uL (0.00-0.10); Basophils % (A) 0.8 %; Eosinophils # (A) 0.08 X 10*3/uL (0.04-0.35); Eosinophils % (A) 1.5 %; HCT 41.8 % (37.2-46.3); HGB 13.6 g/dL (12.0-15.0); Lymphocytes # (A) 0.97 X 10*3/uL (0.90-5.00); Lymphocytes % (A) 18.5 %; MCH 30.4 pg (27.0-32.0); MCHC 32.5 g/dL (32.0-37.0); MCV 93.5 FL (80.0-97.0); Mean Platelet Volume 10.5 FL (9.5-12.2); Monocytes # (A) 0.53 X 10*3/uL (0.20-1.00); Monocytes % (A) 10.1 %; NRBC Per 100 WBC 0 X 10*3/uL (0.00-0.01); Neutrophils # (A) 3.59 X 10*3/uL (1.80-7.70); Neutrophils % (A) 68.7 %; Platelet Count 273 X 10*3/uL (140-440); RBC 4.47 X 10*6/uL (4.10-5.20); RDW 12.2 % (11.5-14.5); WBC 5.23 X 10*3/uL (4.50-10.00)
[2024-09-24 15:49] LABS: ALT 14 U/L (8-44); AST 24 U/L (13-35); Blood Urea Nitrogen 15.8 mg/dL (9.0-27.0); C Reactive Protein <0.30 mg/dL (0.00-0.80)
[2024-09-24 16:17] LABS: Erythrocyte Sedimentation Rate <1 mm/Hr (0-20)
== END | disposition home or self-care (01) ==
LOC: LABWHC1 10:31
PROVIDERS: ATTEND Internal Medicine Rheumatology
DX: L40.50 Arthropathic psoriasis, unspecified (principal); Z79.899 Other long term (current) drug therapy; Z79.61 Long term (current) use of immunomodulator
CPT/HCPCS: 36415; 82565; 84450; 84460; 84520; 85025; 85652; 86140